=== PATIENT | male | born 1965 | race Caucasian/White ===

== ENCOUNTER 2017-09-07 05:45 | Day surgery (SDC) | payer BC ==
[~2017-09-07] VITALS: Ht 177.8 cm; Wt 86.2 kg
[~2017-09-07 05:45] MED LIST: LISINOPRIL-HCT1 EAC2 PO; MAPAP325 MG PO; MOTRIN IB200 MG PO; OMEPRAZOLE20 MG PO; OXYCODON-ACETA1 EAC2 PO; PRILOSEC OTC20 MG PO; VERAPAMIL HCL40 MG PO
--- NOTE | 2017-09-07 09:00 | NUR ---
09/07/17 0900 Deisy Melgar 0807 PT ARRIVED TO PACU WITH ORAL AIRWAY IN PLACE, ON 6L VIA MASK. JAW THRUST NEEDED OFF AND ON TO MAINTAIN AIRWAY. PT REACTIVE TO PAINFUL STIMULI. RESP EVEN AND UNLABORED.
[2017-09-07] MEDS ORDERED: OXYCODON-ACETA1 EAC2 PO (09:09)
[2017-09-07] MEDS ORDERED: IBUPROFEN600 MG PO (09:09)
[2017-09-07] MEDS ORDERED: MAPAP325 MG PO (09:09)
--- NOTE | 2017-09-07 10:00 | NUR ---
PT ALERT, ORIENTED AND SUPPORTED BY HIS JOE. PT SEEMED PREPARED, FEW QUESTIONS AND REQUESTED PRAYER. WILL FOLLOW NEEDED
--- NOTE | 2017-09-07 10:21 | NUR ---
PT IS BACK TO FROM PACU. HE REPORTS SOME NAUSEA AND PAIN. HE STATES THAT HE WOULD LIKE TO SLEEP FOR A LITTLE BIT BEFORE HIS COMES BACK TO THE ROOM. THE LIGHTS ARE SHUT OFF AND CURTAIN CLOSED TO HELP REDUCE STIMULI. CALL LIGHT IS WITHIN REACH. PT IS EDUCATED THAT THERE IS WATER ON HIS BEDSIDE TABLE AND WHEN READY TO TAKE A SMALL SIP TO SEE HOW HE DOES. PT HAS NO OTHER C/O'S AT THIS TIME. WILL REASSESS WTIHIN THE HOUR.
--- NOTE | 2017-09-07 11:11 | NUR ---
PT REPORTS NO PAIN AT THIS TIME. SAYS HE FEELS FINE LONG HE IS NOT MOVING. DR. SALGADO INTO LOOK AT DRESSING, IS NOT CONCERNED WITH DRAINAGE AND ADVISED TO LEAVE DRESSING IS. FAMILY IS AT THE BEDSIDE AT THIS TIME. WATER AT BEDSIDE TABLE, CALL LIGHT WITHIN REACH. NO OTHER C/O'S AT THIS TIME. WILL REASSESS WITHIN THE HOUR.
--- NOTE | 2017-09-07 12:22 | NUR ---
PT IS STARTING TO WAKE UP A BIT MORE. HE REPORTS THAT HIS NAUSEA IS BETTER. HE IS TOLERATING SIPS OF WATER. FAMILY AT THE BEDSIDE. CALL LIGHT WITHIN REACH. NO OTHER C/O'S AT THIS TIME. WILL REASSESS WTIHIN THE HOUR.
--- NOTE | 2017-09-07 13:24 | NUR ---
SANDWICH ORDERED FROM DIETARY.
--- NOTE | 2017-09-07 14:33 | NUR ---
YINKA 1420: PT IS ASSISTED UP OOB TO THE RESTROOM. HE REPORTS THAT HE HAS NO PAIN WHEN HE ISN'T MOVING, WITH MOVEMENT HE REPORTS A 4/10. HE IS ABLE TO TOLERATE A SANDWICH WITHOUT ISSUE. HE IS GIVEN A PAIN PILL AND INSTRUCTED ON HOW BEST TO DRESS HIMSELF AT THIS TIME. WILL REASSESS IN 15 MINUTES AND BEGIN DC PROCESS.
--- NOTE | 2017-09-07 15:01 | NUR ---
DC INSTRUCTIONS ARE GIVEN WITH PRESENT. PT IS ABLE TO VERBALIZE UNDERSTANDING. QUESTIONS ARE ASKED AND ANSWERED. PT IS WHEELED OUT TO VEHICLE IN WHEELCHAIR.
--- NOTE | 2017-09-07 18:57 | OR ---
[facility] [address] [place], [place] [address] Signed DATE OF OPERATION: 09/07/2017 SURGEON: Dereck Salgado MD PREOPERATIVE DIAGNOSIS: Incisional hernia at umbilicus (previous trocar site). POSTOPERATIVE DIAGNOSIS: Incisional hernia at umbilicus (previous trocar site). PROCEDURES: 1. Repair of incisional hernia. 2. Implantation of Prolene mesh (underlay technique at properitoneal space). ANESTHESIA: General endotracheal, [place], ADMINISTRATIVE PROJECT COORDINATOR and local 30 mL of 0.25% Marcaine with epinephrine. INDICATION: This 51-year-old white man is a former patient of Dr. Jeovanny Chirinos, now retired. He underwent laparoscopic cholecystectomy with cholangiogram by me in June of 2016. 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 He is noted to have a hernia at the umbilicus in the trocar site. It has become more bulky and more symptomatic. He is admitted at this time to undergo repair of the hernia. He understands risks of bleeding, infection, recurrence and so forth and wished to proceed. Implantation of mesh is anticipated and he and his understand that as well. FINDINGS: The fascial defect was approximately 2-3 cm and had herniated omentum directly beneath the subcutaneous layer without a well-developed hernia sac very consistent with fascial dehiscence and herniation of omentum from the beginning. The hernia defect was approximately 3 cm in size. The fascia was quite garcia and once the herniated omentum was freed and replaced to the abdominal cavity, the properitoneal space was able to be developed and the peritoneum reapproximated with Vicryl allowing for implantation of Prolene mesh in the properitoneal space. The fascia was reapproximated centrally following that as well. DESCRIPTION OF PROCEDURE: The patient was brought to the operating room, given a general endotracheal anesthetic. Electronically Signed By: DERECK SALGADO MD 09/07/17 1857 PATIENT NAME: GARIMA DREW OPERATIVE REPORT DATE OF : 63 REPORT #: [id number] PHYSICIAN: DERECK SALGADO MD PCP: NO PRIMARY CARE PHYSICIAN REPORT IS CONFIDENTIAL AND NOT TO BE RELEASED WITHOUT AUTHORIZATION [facility] [address] [place], [place] [address] Signed Preoperative antibiotic Ancef was given. Sequential compression device stockings used and heparin subcutaneously administered. The abdomen was prepared with a chlorhexidine solution and draped sterilely. Palpation in the region of the umbilicus showed a bulky soft subcutaneous mass consistent with herniated tissue. A curvilinear incision was made around the left side of the umbilicus and extended down to the infraumbilical previous trocar site incision. Dissection was carried through the subcutaneous tissue were quickly identified was omentum. This was from the subcutaneous tissue with blunt electrocautery dissection. The fascia and fascial defect were easily palpated, measured approximately 3 cm or so in size. Once the omentum was more fully reduced with adhesions freed with electrocautery, the peritoneal space could be well identified. The small bowel loops appeared normal. The omentum was generous and was at the base of the defect. Subcutaneous tissue was freed circumferentially around the fascia. The peritoneum was grasped with the edge of the fascial defect and incised and using blunt and electrocautery dissection freed from the overlying fascial layer circumferentially. This allowed for good development of the properitoneal space. A generous layer of fat was noted between the peritoneum and the overlying fascia. Once freed circumferentially for at least 3 cm from the edge, the peritoneal sac was reapproximated with interrupted 2-0 Vicryl suture. A regular size Prolene mesh was cut to an elliptical configuration and secured into the properitoneal space with interrupted 0 Prolene sutures with Prolene pledgets. Complete coverage of the defect was noted with 3 cm overlap overall. Midline fascia was then reapproximated with interrupted 0 Prolene suture in horizontal mattress configuration, again using Prolene pledgets. A 30 mL of 0.25% Marcaine with epinephrine was injected locally. Subcutaneous tissue of Bethany's layer was reapproximated with interrupted 2-0 Vicryl. The skin was then approximated with running subcuticular 3-0 Vicryl. Steri-Strips were applied as was the Mepilex silver sponge dressing and an OpSite. The patient was ultimately extubated without problem and taken to recovery room in good condition and suffered no complication. Sponge, needle, and instrument counts reported as correct x3. Dereck Salgado MD JM/MODL /[id number] Electronically Signed By: DERECK SALGADO MD 09/07/17 1857 PATIENT NAME: GARIMA DREW OPERATIVE REPORT DATE OF : 63 REPORT #: [id number] PHYSICIAN: DERECK SALGADO MD PCP: NO PRIMARY CARE PHYSICIAN REPORT IS CONFIDENTIAL AND NOT TO BE RELEASED WITHOUT AUTHORIZATION [facility] [address] [place], [place] [address] Signed cc: Jeovanny Chirinos MD Copies: JEOVANNY CHIRINOS MD ~ Electronically Signed By: DERECK SALGADO MD 09/07/17 1857 PATIENT NAME: GARIMA DREW OPERATIVE REPORT DATE OF : 63 REPORT #: [id number] PHYSICIAN: DERECK SALGADO MD PCP: NO PRIMARY CARE PHYSICIAN REPORT IS CONFIDENTIAL AND NOT TO BE RELEASED WITHOUT AUTHORIZATION
== END 2017-09-07 14:50 | disposition home or self-care (01) ==
LOC: DS 05:45
PROVIDERS: Surgery
PROC: 0WUF0JZ Supplement Abdominal Wall with Synthetic Substitute, Open Approach (ICD-10-PCS; principal; 2017-09-07 06:45)
DX: K43.2 Incisional hernia without obstruction or gangrene (principal); K21.9 Gastro-esophageal reflux disease without esophagitis; I10 Essential (primary) hypertension; Z87.442 Personal history of urinary calculi; Z79.899 Other long term (current) drug therapy
CPT/HCPCS: C1781; J0690; J1644; J1885; J2250; J2405; J2550; J2704; J2710; J2765; J3010; J7120

== ENCOUNTER 2022-09-23 22:22 | Emergency (ER) | payer OTHER ==
[~2022-09-23] VITALS: Ht 177.8 cm; Wt 86.2 kg
--- OUTSIDE RECORDS SUMMARY | ~2022-09-23 | XMS | Continuity of Care Document ---
Demographics + + + | Address | [address] | | | [place] [address] | + + + | Preferred Language | Unknown | + + + | Marital Status | | + + + | Restorationism Affiliation | Unknown | + + + | Race | White | + + + | Ethnic Group | Not or | + + + Author + + + | Author | [facility] | + + + | Organization | [facility] | + + + | Address | [address] | | | [place] [address] | + + + | Phone | | + + + Care Team Providers + + + + | Care Necktie Centralizing Machine Operator Name | Role | Phone | + + + + Unavailable | Unavailable | + + + + Allergies No information. Encounters No information. Functional Status No information. Immunizations No information. Medications + + + + | date | description | facility | + + + + | 2016-07-21 00:00 | OXYCODONE | [facility] | | | HCL/ACETAMINOPHEN | | + + + + | 2017-09-07 00:00 | OXYCODONE | [facility] | | | HCL/ACETAMINOPHEN | | + + + + | 2017-09-07 00:00 | IBUPROFEN | [facility] | + + + + | 2021-08-30 00:00 | | [facility] | | | LISINOPRIL/HYDROCHLOROTHIAZ | | | | MELISSA | | + + + + | 2021-08-30 00:00 | OMEPRAZOLE | [facility] | + + + + | 2016-07-21 00:00 | ACETAMINOPHEN | [facility] | + + + + | 2017-09-07 00:00 | ACETAMINOPHEN | [facility] | + + + + | 2016-07-21 00:00 | IBUPROFEN | [facility] | + + + + | 2021-08-30 00:00 | OMEPRAZOLE MAGNESIUM | [facility] | + + + + | 2021-08-30 00:00 | VERAPAMIL HCL | [facility] | + + + + Problems No information. Procedures No information. Results/Labs No information. Social History No information. Vital Signs No information."
--- OUTSIDE RECORDS SUMMARY | ~2022-09-23 | XMS | Continuity of Care Document ---
Demographics + + + | Address | [address] | | | [place] [address] | + + + | Preferred Language | Unknown | + + + | Marital Status | | + + + | Tenriism Affiliation | Unknown | + + + | Race | White | + + + | Ethnic Group | Not or | + + + Author + + + | Author | [facility] | + + + | Organization | [facility] | + + + | Address | [address] | | | [place] [address] | + + + | Phone | | + + + Care Team Providers + + + + | Care Clothing Room Supervisor Name | Role | Phone | + + + + Unavailable | Unavailable | + + + + Allergies No information. Encounters No information. Functional Status No information. Immunizations No information. Medications + + + + | date | description | facility | + + + + | 2016-07-21 00:00 | OXYCODONE | [facility] | | | HCL/ACETAMINOPHEN | | + + + + | 2017-09-07 00:00 | OXYCODONE | [facility] | | | HCL/ACETAMINOPHEN | | + + + + | 2017-09-07 00:00 | IBUPROFEN | [facility] | + + + + | 2021-08-30 00:00 | | [facility] | | | LISINOPRIL/HYDROCHLOROTHIAZ | | | | MELISSA | | + + + + | 2021-08-30 00:00 | OMEPRAZOLE | [facility] | + + + + | 2016-07-21 00:00 | ACETAMINOPHEN | [facility] | + + + + | 2017-09-07 00:00 | ACETAMINOPHEN | [facility] | + + + + | 2016-07-21 00:00 | IBUPROFEN | [facility] | + + + + | 2021-08-30 00:00 | OMEPRAZOLE MAGNESIUM | [facility] | + + + + | 2021-08-30 00:00 | VERAPAMIL HCL | [facility] [place] [facility] | + + + + Problems No information. Procedures No information. Results/Labs No information. Social History No information. Vital Signs No information."
[~2022-09-23 22:22] MED LIST changes: +IBUPROFEN600 MG PO
[2022-09-24] MEDS ORDERED: OXYCODONE HCL5 MG PO (02:27)
[2022-09-24 03:00] VITALS: BP 152/94
== END 2022-09-24 03:00 | disposition home or self-care (01) ==
LOC: ED 22:22
DX: N13.2 Hydronephrosis with renal and ureteral calculous obstruction (principal); K21.9 Gastro-esophageal reflux disease without esophagitis; Z79.899 Other long term (current) drug therapy
CPT/HCPCS: 36415; 74176; 80053; 81001; 83690; 85025; 96374; 96375; 99284-25; J1170; J1885; J2405